=== PATIENT | female | born 1965 | race Caucasian/White ===

== ENCOUNTER 2016-07-26 20:52 | Emergency (ER) | payer OTHER ==
[2016-07-26 20:57] VITALS: BP 126/82; PULSE 86; TEMP 98.5; BMI 69.9
--- NOTE | 2016-07-26 21:18 | PDOC ---
History of Present Illness - General Chief Complaint: Injury Stated Complaint: RT FOOT INJURY Time Seen by Provider: 07/26/16 21:12 History Source: Patient Exam Limitations: No Limitations - History of Present Illness Initial Comments: 07/26/16 21:13 tripped and fell injuring to right foot 2 days ago. Inversion injury. USed ice and elevation with minimal resolve. 07/26/16 21:16 07/26/16 21:18 Occurred: reports: other (2 days ) Severity: reports: mild, moderate Pain Location: reports: lower extremity (right ankle / foot ) Method of Injury: Yes: fall Modifying Factors: improves with: cold therapy, immobilization Loss of Consciousness: no loss of consciousness Associated Symptoms (Fall): denies symptoms Past History - Travel Traveled outside of the country in the last 30 days: No Close contact w/someone who was outside of country & ill: No - Past Medical History Allergies/Adverse Reactions: Allergies Allergy/AdvReac Type Severity Reaction Status Date / Time No Known Allergies Allergy Verified 07/26/16 20:57 Home Medications: Ambulatory Orders NK [No Known Home Medication] 07/26/16 Anemia: No GI Disorders: Yes (H/O PANCREATITIS GB STONE FEB 2009,H-PYLORI) Suicide Attempt (Hx): No - Surgical History Cholecystectomy: Yes - Psycho/Social/Smoking Cessation Hx Anxiety: No Suicidal Ideation: No Smoking Status: No Smoking History: Never smoked Have you smoked in the past 12 months: No Number of Cigarettes Smoked Daily: 0 Hx Alcohol Use: No Drug/Substance Use Hx: No Substance Use Type: None Hx Substance Use Treatment: No Review of Systems - Review of Systems Able to Perform ROS?: Yes Is the patient limited Ugandan proficient: Yes Constitutional: Yes: See HPI. No: Symptoms Reported, Chills, Fever HEENTM: No: Symptoms Reported Musculoskeletal: Yes: Symptoms Reported, See HPI, Joint Pain, Joint Swelling Integumentary: Yes: Symptoms Reported, See HPI, Bruising Neurological: No: Symptoms reported All Other Systems: Reviewed and Negative *Physical Exam - Vital Signs Last Vital Signs Temp Pulse Resp BP Pulse Ox 98.5 F 86 18 126/82 99 07/26/16 20:54 07/26/16 20:54 07/26/16 20:54 07/26/16 20:54 07/26/16 20:54 - Physical Exam General Appearance: Yes: Nourished, Appropriately Dressed, Apparent Distress, Mild Distress HEENT: positive: ERUM, Normal ENT Inspection, Normal Voice, Symmetrical, TMs Normal, Pharynx Normal Neck: positive: Supple. negative: Tender, Lymphadenopathy (R), Lymphadenopathy (L) Respiratory/Chest: positive: Lungs Clear Gastrointestinal/Abdominal: positive: Soft. negative: Normal Bowel Sounds Musculoskeletal: positive: Normal Inspection. negative: CVA Tenderness Extremity: positive: Normal Capillary Refill, Normal Inspection, Tender, Swelling. 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 Medical Decision Making - Medical Decision Making 07/26/16 22:03 *DC/Admit/Observation/Transfer Diagnosis at time of Disposition: Right ankle sprain Qualifiers: Encounter type: initial encounter Involved ligament of ankle: unspecified ligament Qualified Code(s): S93.401A - Sprain of unspecified ligament of right ankle, initial encounter - Discharge Dispostion Disposition: HOME Condition at time of disposition: Stable Admit: No - Referrals Referrals: Gunner Izaguirre MD [Primary Care Provider] - Juan J Mims MD [Staff Physician] - - Patient Instructions Printed Discharge Instructions: DI for Ankle Sprain Additional Instructions: Rest, ice to area on and off for 15 minutes 4-6 times a day Avoid heavy lifting or exercise until pain and swelling is resolved or until further directed Keep area highly elevated to reduce swelling Use splints/Jorge Luis wrap as directed Followup with orthopedist in one to 2 days if not improving, if significantly improved may wait one week for followup with orthopedist May use ibuprofen 2-200 mg tablets every 6 hours as needed for pain - Post Discharge Activity Work/School Note: Back to Work
[2016-07-26] MEDS ORDERED: IBUPROFEN 600 MG TABLET (FP) PO ONE ×2 (22:11→22:13)
== END 2016-07-26 22:06 | disposition home or self-care (01) ==
LOC: JERFT 20:52
PROC: 2W3LX1Z Immobilization of Right Lower Extremity using Splint (ICD-10-PCS; principal; 2016-07-26)
DX: S93.401A Sprain of unspecified ligament of right ankle, initial encounter (principal); W01.0XXA Fall on same level from slipping, tripping and stumbling without subsequent striking against object, initial encounter; Y93.89 Activity, other specified; Y92.89 Other specified places as the place of occurrence of the external cause
CPT/HCPCS: 29515; 73610-TC-RT; 73630-TC-RT; 99281-25

== ENCOUNTER 2016-11-24 19:42 | Emergency (ER) | payer OTHER ==
[2016-11-24 19:49] VITALS: BP 145/92; PULSE 81; TEMP 99.3; BMI 32.4
[2016-11-24] MEDS ORDERED: diphenhydrAMINE HCL 25 MG CAPSULE (FP) PO ONE ×2 (20:59→21:03)
--- NOTE | 2016-11-24 21:07 | PDOC ---
History of Present Illness - General Chief Complaint: Eye Problem Stated Complaint: EYE PROBLEM/ARM PAIN Time Seen by Provider: 11/24/16 20:20 History Source: Patient - History of Present Illness Severity: moderate Past History - Past Medical History Allergies/Adverse Reactions: Allergies Allergy/AdvReac Type Severity Reaction Status Date / Time No Known Allergies Allergy Verified 07/26/16 20:57 Home Medications: Ambulatory Orders Loratadine [Claritin] 10 mg PO DAILY #7 tablet 11/24/16 Olopatadine HCl [Patanol] 1 drop OD BID #5 ml 11/24/16 Anemia: No GI Disorders: Yes (H/O PANCREATITIS GB STONE FEB 2009,H-PYLORI) - Surgical History Cholecystectomy: Yes - Suicide/Smoking/Psychosocial Hx Smoking Status: No Smoking History: Never smoked Have you smoked in the past 12 months: No Number of Cigarettes Smoked Daily: 0 Information on smoking cessation initiated: No Hx Alcohol Use: No Drug/Substance Use Hx: No Substance Use Type: None Hx Substance Use Treatment: No Review of Systems - Review of Systems HEENTM: No: Eye Pain, Blurred Vision, Tearing *Physical Exam - Vital Signs Last Vital Signs Temp Pulse Resp BP Pulse Ox 99.3 F 81 20 145/92 98 11/24/16 19:44 11/24/16 19:44 11/24/16 19:44 11/24/16 19:44 11/24/16 19:44 - Physical Exam General Appearance: Yes: Appropriately Dressed. No: Apparent Distress HEENT: positive: Normal Voice, Other (significant chemosis to lateral canthus of R eye, no erythema, tearing, discharge, fb or periorbital edema) Neck: positive: Supple Respiratory/Chest: negative: Respiratory Distress Integumentary: positive: Dry, Warm Neurologic: positive: Fully Oriented, Alert, Normal Mood/Affect Medical Decision Making - Medical Decision Making 11/24/16 21:04 51-year-old female, no significant history here with sudden onset right eye itching and discomfort that started while she was driving today. Patient thought it was her contact lens and has since removed and discarded lens. Denies eye pain, tearing, discharge, foreign body sensation, photophobia or visual changes. Patient well-appearing and stable with significant chemosis to lateral canthus of right eye without conjunctival erythema, discharge or tearing. No FB on lid eversion. No uptake on slit lamp. Symptoms most likely secondary to allergic reaction. Patient now states she has a dog at home who she is allergic and who she was playing with earlier today. For unclear reasons has kept dog. Dc with basic eyecare, antihistamine drop and oral antihistamine. Patient to refrain from contact lens use until symptoms completely resolve. Reasons to return discussed with patient *DC/Admit/Observation/Transfer Diagnosis at time of Disposition: Allergic conjunctivitis Qualifiers: Laterality: right Qualified Code(s): H10.11 - Acute atopic conjunctivitis, right eye; H10.11 - Acute atopic conjunctivitis, right eye - Discharge Dispostion Disposition: HOME Condition at time of disposition: Good - Prescriptions Prescriptions: Loratadine [Claritin] 10 mg PO DAILY #7 tablet Olopatadine HCl [Patanol] 1 drop OD BID #5 ml - Patient Instructions Printed Discharge Instructions: DI for Eye Allergic Reaction Additional Instructions: Take medications and use drop as prescribed until symptoms resolve. Apply cool compresses to right as needed for comfort Turn to ER if symptoms worsen
== END 2016-11-24 21:09 | disposition home or self-care (01) ==
LOC: JERFT 19:42
DX: H10.11 Acute atopic conjunctivitis, right eye (principal); Z87.19 Personal history of other diseases of the digestive system
CPT/HCPCS: 99281-25

== ENCOUNTER 2017-01-07 15:22 | Emergency (ER) | payer OTHER ==
--- NOTE | 2017-01-07 15:42 | PDOC ---
Rapid Medical Evaluation Time Seen by Provider: 01/07/17 15:30 Medical Evaluation: Allergies Allergy/AdvReac Type Severity Reaction Status Date / Time No Known Allergies Allergy Verified 07/26/16 20:57 01/07/17 15:31 Pt presents with complaint of : lt ankle injury since wednesday On brief exam: vss, edema to calcaneofibular ligament I have ordered the following: lt ankle xray Pt will go to the Emergency Dept for further workup Discharge Disposition - Diagnosis Ankle injury Qualifiers: Encounter type: initial encounter Laterality: left Qualified Code(s): S99.912A - Unspecified injury of left ankle, initial encounter - Referrals - Patient Instructions - Post Discharge Activity
[2017-01-07 15:44] VITALS: BP 142/72; PULSE 79; BMI 31.8
--- NOTE | 2017-01-07 17:08 | PDOC ---
History of Present Illness - General Chief Complaint: Injury Stated Complaint: INJURY Time Seen by Provider: 01/07/17 15:30 History Source: Patient Exam Limitations: No Limitations - History of Present Illness Initial Comments: 01/07/17 17:04 51 yr female tripped 5 days ago injured her left ankle. Pt has continued pain. pt is ambulatory Past History - Past Medical History Allergies/Adverse Reactions: Allergies Allergy/AdvReac Type Severity Reaction Status Date / Time No Known Allergies Allergy Verified 01/07/17 15:44 Home Medications: Ambulatory Orders Loratadine [Claritin] 10 mg PO DAILY #7 tablet 11/24/16 Olopatadine HCl [Patanol] 1 drop OD BID #5 ml 11/24/16 Anemia: No COPD: No GI Disorders: Yes (H/O PANCREATITIS GB STONE FEB 2009,H-PYLORI) - Surgical History Cholecystectomy: Yes - Suicide/Smoking/Psychosocial Hx Smoking Status: No Smoking History: Never smoked Have you smoked in the past 12 months: No Number of Cigarettes Smoked Daily: 0 Information on smoking cessation initiated: No Hx Alcohol Use: No Drug/Substance Use Hx: No Substance Use Type: None Hx Substance Use Treatment: No Review of Systems - Review of Systems Able to Perform ROS?: Yes Is the patient limited Croatian proficient: No Constitutional: No: Symptoms Reported HEENTM: No: Symptoms Reported Respiratory: No: Symptoms reported Cardiac (ROS): No: Symptoms Reported ABD/GI: No: Symptoms Reported : No: Symptoms Reported Musculoskeletal: Yes: See HPI *Physical Exam - Vital Signs Last Vital Signs Temp Pulse Resp BP Pulse Ox 79 18 142/72 100 01/07/17 15:39 01/07/17 15:39 01/07/17 15:39 01/07/17 15:39 - Physical Exam General Appearance: Yes: Nourished, Appropriately Dressed HEENT: positive: EOMI, ERUM Musculoskeletal: positive: Normal Inspection Extremity: positive: Normal Capillary Refill, Normal Range of Motion, Swelling. negative: Delayed Capillary Refill, Pedal Edema Integumentary: positive: Normal Color, Dry, Warm Neurologic: positive: blocker and cutter contact lens II-XII NML intact, Fully Oriented, Alert, Normal Mood/ Affect, Normal Response, Motor Strength 5/5 Procedures - Splinting Splint Location: Left: Ankle (mcgill dressing ) Medical Decision Making - Medical Decision Making 01/07/17 17:05 cc: left ankle injury 5 days ago will xray to r/o fracture (ordered in [facility]) mcgill dressing and hard sole shoe ortho referral weight bear as tolerated 01/07/17 17:08 negative fracture *DC/Admit/Observation/Transfer Diagnosis at time of Disposition: Ankle injury Qualifiers: Encounter type: initial encounter Laterality: left Qualified Code(s): S99.912A - Unspecified injury of left ankle, initial encounter - Discharge Dispostion Disposition: HOME Condition at time of disposition: Good - Referrals Referrals: Gunner Izaguirre MD [Primary Care Provider] - Juan J Mims MD [Staff Physician] - - Patient Instructions Additional Instructions: elevate and apply warm compresses every 2hrs for 20 minutes take motrin as needed for pain use the shaheed wrap dressing at all times except to bathe follow with the orthopedist next week call tomorrow to make appointment - Post Discharge Activity
== END 2017-01-07 17:11 | disposition home or self-care (01) ==
LOC: JERFT 15:22
PROC: 2W3RX1Z Immobilization of Left Lower Leg using Splint (ICD-10-PCS; principal; 2017-01-07)
DX: S99.812A Other specified injuries of left ankle, initial encounter (principal); W01.0XXA Fall on same level from slipping, tripping and stumbling without subsequent striking against object, initial encounter; Y93.89 Activity, other specified; Y92.89 Other specified places as the place of occurrence of the external cause; Y99.8 Other external cause status
CPT/HCPCS: 73610-TC-LT; 99281-25

== ENCOUNTER 2017-11-11 22:59 | Emergency (ER) | payer OTHER ==
[2017-11-11 23:02] VITALS: BP 139/80; PULSE 82; TEMP 98.3; BMI 32.5
--- NOTE | 2017-11-11 23:29 | PDOC ---
History of Present Illness - General Chief Complaint: Pain, Acute Stated Complaint: KNEE PAIN Time Seen by Provider: 11/11/17 23:12 History Source: Patient Exam Limitations: No Limitations - History of Present Illness Initial Comments: 11/11/17 23:24 HISTORY OF PRESENT ILLNESS: This is a 52-year-old woman with past medical history of pancreatitis, cholecystectomy presents emergency Department with atraumatic left knee pain for the past 3 days. Patient states she had a similar injury a couple of months ago and has been resting her knee taking over-the- counter pain medication which has helped. Patient was evaluated by her primary doctor 2 days ago and she was placed on Naprosyn which is helping control her pain. No recent travel or sick contacts. PAST MEDICAL HISTORY: see hpi SURGICAL HISTORY: see hpi ALLERGIES: No known drug allergies REVIEW OF SYSTEMS General/Constitutional: Denies fever or chills. Denies weakness, weight change. HEENT: Denies change in vision. Denies ear pain or discharge. Denies sore throat. Cardiovascular: Denies chest pain or shortness of breath. Respiratory: Denies cough, wheezing, or hemoptysis. Gastrointestinal: Denies nausea, vomiting, diarrhea or constipation. Denies rectal bleeding. Genitourinary: Denies dysuria, frequency, or change in urination. Musculoskeletal: Left knee pain. Denies neck or back pain. Skin and breasts: Denies rash or easy bruising. Neurologic: Denies headache, vertigo, loss of consciousness, or loss of sensation. Psychiatric: Denies depression or anxiety. Endocrine: Denies increased thirst. Denies abnormal weight change. Hematologic/Lymphatic: Denies anemia, easy bleeding, or history of blood clots. Allergic/Immunologic: Denies hives or skin allergy. Denies latex allergy. PHYSICAL EXAM General Appearance: Well-appearing, appropriately dressed. No apparent distress , no intoxication. HEENT: EOMI, PERRLA, normal ENT inspection, normal voice, TMs normal, pharynx normal. No conjunctival pallor. No photophobia, scleral icterus. Neck: Supple. Trachea midline. No tenderness, rigidity, carotid bruit, stridor , lymphadenopathy, or thyromegaly. Respiratory/Chest: Lungs CTAB. No shortness of breath, chest tenderness, respiratory distress, accessory muscle use. No crackles, rales, rhonchi, stridor , wheezing, dullness Cardiovascular: RRR. S1, S2. No JVD, murmur, bradycardia, tachycardia. Vascular Pulses: Dorsalis-Pedis (R): 2+, Dorsalis-Pedis (L): 2+ Gastrointestinal/Abdominal: Normal bowel sounds. Abdomen soft, non-distended. No tenderness or rebound tenderness. No organomegaly, pulsatile mass, guarding, hernia, hepatomegaly, splenomegaly. Lymphatic: No adenopathy, tenderness. Musculoskeletal/Extremities: Normal inspection. FROM of all extremities, normal capillary refill. Pelvis Stable. No CVA tenderness. No tenderness to extremities, pedal edema, swelling, erythema or deformity. -Cleveland's test. Ambulatory with limp. Integumentary: Appropriate color, dry, warm. 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 Fully oriented, alert. Appropriate mood/affect. Motor strength 5/5. No appreciable EOM palsy, facial droop or sensory deficit. Past History - Past Medical History Allergies/Adverse Reactions: Allergies Allergy/AdvReac Type Severity Reaction Status Date / Time No Known Allergies Allergy Verified 11/11/17 23:02 Home Medications: Ambulatory Orders Loratadine [Claritin] 10 mg PO DAILY #7 tablet 11/24/16 Olopatadine HCl [Patanol] 1 drop OD BID #5 ml 11/24/16 Anemia: No COPD: No GI Disorders: Yes (H/O PANCREATITIS GB STONE FEB 2009,H-PYLORI) - Surgical History Abdominal Surgery: Yes Cholecystectomy: Yes - Suicide/Smoking/Psychosocial Hx Smoking Status: No Smoking History: Never smoked Have you smoked in the past 12 months: No Number of Cigarettes Smoked Daily: 0 Hx Alcohol Use: No Drug/Substance Use Hx: No Substance Use Type: None Hx Substance Use Treatment: No *Physical Exam - Vital Signs Last Vital Signs Temp Pulse Resp BP Pulse Ox 98.3 F 82 18 139/80 98 11/11/17 23:00 11/11/17 23:00 11/11/17 23:00 11/11/17 23:00 11/11/17 23:00 Medical Decision Making - Medical Decision Making 11/11/17 23:26 A/P: 52-year-old woman with atraumatic left knee pain for 3 days No swelling or erythema present to left knee Negative Khan test 2+ DP pulses bilaterally Full range of motion of left knee against resistance Patient was able to ambulate with a limp X-rays likely d/c 11/11/17 23:40 X-rays as read by me: No acute fractures or dislocations noted. I'll discharge the patient with a knee immobilizer crutches with orthopedic follow-up. *DC/Admit/Observation/Transfer Diagnosis at time of Disposition: Left medial knee pain - Discharge Dispostion Disposition: HOME Condition at time of disposition: Stable Decision to Admit order: No - Referrals Referrals: Gunner Izaguirre MD [Primary Care Provider] - Juan J Mims MD [Staff Physician] - - Patient Instructions Additional Instructions: Take Tylenol as needed for pain. Follow manufacturers instructions for appropriate dosage. Try not to walk or bear weight on your left knee as much as possible for the next 3 days. Apply ice for 20 minutes and removed for at least 20 minutes before reapplying the ice. Keep immobilizer on your knee as much as possible. Whenever possible keep your leg elevated to decrease swelling to your ankle. You've been given the number for an orthopedist. If symptoms do not resolve within the next 7 days call the orthopedist for further evaluation. Return to emergency department for discoloration of the foot, numbness or tingling to the foot, worsening pain, or any other concerns. Thank you very much for choosing us to provide your emergent healthcare needs. - Post Discharge Activity
== END 2017-11-12 00:20 | disposition home or self-care (01) ==
LOC: JER 22:59
DX: M25.562 Pain in left knee (principal); Z87.19 Personal history of other diseases of the digestive system
CPT/HCPCS: 73562-TC-LT-FY; 99282-25

== ENCOUNTER 2018-12-28 05:41 | Emergency (ER) | payer OTHER ==
[2018-12-28 06:09] VITALS: BP 129/82; PULSE 77; TEMP 98.3; BMI 35.1
--- NOTE | 2018-12-28 06:25 | PDOC ---
History of Present Illness - General Chief Complaint: Sore Throat Stated Complaint: COUGH/SORE THROAT Time Seen by Provider: 12/28/18 06:21 History Source: Patient - History of Present Illness Initial Comments: 12/28/18 06:22 53-year-old female reports that she has been having sore throat, nasal congestion, nausea, diarrhea for the past 1 day. Patient reports that she has been in and out of the [place] [facility] taking care of sick grandmother. Patient reports that grandmother is diagnosed with pneumonia. denies chest pain, Abdominal pain, urinary symptoms. Patient has no past medical history 12/28/18 06:23 Past History - Past Medical History Allergies/Adverse Reactions: Allergies Allergy/AdvReac Type Severity Reaction Status Date / Time No Known Allergies Allergy Verified 12/28/18 06:09 Home Medications: Ambulatory Orders Loratadine [Claritin] 10 mg PO DAILY #7 tablet 11/24/16 Olopatadine HCl [Patanol] 1 drop OD BID #5 ml 11/24/16 Azithromycin [Zithromax 250mg Tablets -] 250 mg PO UTDICT #6 tab 12/28/18 Anemia: No COPD: No GI Disorders: Yes (H/O PANCREATITIS GB STONE FEB 2009,H-PYLORI) - Surgical History Abdominal Surgery: Yes Cholecystectomy: Yes - Psycho Social/Smoking Cessation Hx Smoking Status: No Smoking History: Never smoked Have you smoked in the past 12 months: No Number of Cigarettes Smoked Daily: 0 Information on smoking cessation initiated: No Hx Alcohol Use: No Drug/Substance Use Hx: No Substance Use Type: None Hx Substance Use Treatment: No Review of Systems - Review of Systems Able to Perform ROS?: Yes Is the patient limited Bengali proficient: No Constitutional: Yes: Chills HEENTM: Yes: Nose Congestion, Throat Pain ABD/GI: Yes: Diarrhea, Nausea *Physical Exam - Vital Signs Last Vital Signs Temp Pulse Resp BP Pulse Ox 98.3 F 77 17 129/82 98 12/28/18 05:45 12/28/18 05:45 12/28/18 05:45 12/28/18 05:45 12/28/18 05:45 - Physical Exam General Appearance: Yes: Appropriately Dressed HEENT: positive: Normal ENT Inspection Respiratory/Chest: positive: Lungs Clear, Normal Breath Sounds Cardiovascular: positive: Regular Rhythm, Regular Rate Gastrointestinal/Abdominal: positive: Normal Bowel Sounds, Soft. negative: Tender Extremity: positive: Normal Capillary Refill, Normal Inspection, Normal Range of Motion Integumentary: positive: Normal Color, Dry, Warm Neurologic: positive: Fully Oriented, Alert, Normal Mood/Affect Medical Decision Making - Medical Decision Making 12/28/18 06:58 A: URI P: supportive care azithromycin Discharge - Discharge Information Problems reviewed: Yes Clinical Impression/Diagnosis: URI (upper respiratory infection) Qualifiers: URI type: unspecified URI Qualified Code(s): J06.9 - Acute upper respiratory infection, unspecified Condition: Fair Disposition: HOME - Additional Discharge Information Prescriptions: Azithromycin [Zithromax 250mg Tablets -] 250 mg PO UTDICT #6 tab - Follow up/Referral Referrals: Gunner Izaguirre MD [Primary Care Provider] - - Patient Discharge Instructions Patient Printed Discharge Instructions: Common Cold Additional Instructions: Drink plenty of fluids Gargle with warm salty water Drink warm liquids Take azithromycin as prescribed. Take ibuprofen every 6 hours as needed for pain or fever Follow with your doctor as soon as possible - Post Discharge Activity Work/Back to School Note: Back to Work
== END 2018-12-28 06:35 | disposition home or self-care (01) ==
LOC: JER 05:41
DX: J06.9 Acute upper respiratory infection, unspecified (principal)
CPT/HCPCS: 99282-25

== ENCOUNTER 2020-10-19 17:45 | Emergency (ER) | payer OTHER ==
[2020-10-19 18:12] VITALS: BP 128/82; PULSE 83; TEMP 98.6; BMI 30.1
== END 2020-10-19 19:01 | disposition home or self-care (01) ==
LOC: JERFT 17:45
DX: S60.111A Contusion of right thumb with damage to nail, initial encounter (principal); W23.1XXA Caught, crushed, jammed, or pinched between stationary objects, initial encounter
CPT/HCPCS: 73140-TC-RT-FY; 99283-25

== ENCOUNTER 2022-01-28 04:12 | Day surgery (SDC) | payer OTHER ==
[2022-01-23 16:33] VITALS: BMI 30.9
[~2022-01-28 04:12] MED LIST: ACETAMINOPHEN 325 MG TABLET (FP) PO PRN; BSS (NA/CA/MG/K) BALANCED SALT SOLUTION OPHTH SOLN 15 ML BOTTLE OS ONE; CHONDROITIN SU A/HYALUR SOD 1 KIT IO ONE; EPINEPHrine/PF 1 MG/1 ML (1:1,000) AMPULE SQ ONE; LIDOCAINE 1% P/F 10 MG/ML VIAL PNB ONE; POVIDONE-IODINE 5% OPHTHALMIC PREP 30 ML SOLUTION OS ONE; TETRACAINE 0.5% OPHTH SOLN 2 ML BOTTLE OS ONE; TRYPAN BLUE 0.5 ML DISP.SYRIN IO ONE
[2022-01-28] MEDS ORDERED: TROPICAMIDE 1% OPHTH SOLN 15 ML BOTTLE ONE (08:36)
[2022-01-28] MEDS ORDERED: KETOROLAC TROMETHAMINE 0.5% EYE DROP 1 DROP DROPS ONE (08:36)
[2022-01-28] MEDS ORDERED: CYCLOPENTOLATE HCL 1% OPHTH SOLN 2 ML BOTTLE ONE (08:36)
[2022-01-28] MEDS ORDERED: PHENYLEPHRINE 2.5% OPTHALMIC DROP 2ML BOTTLE ONE (08:36)
[2022-01-28] MEDS ORDERED: OFLOXACIN 0.3% OPHTHALMIC SOLUTION 5 ML BOTTLE ONE (08:36)
[2022-01-28] MEDS: OFLOXACIN 0.3% OPHTHALMIC SOLUTION 5 ML BOTTLE OP SCH ×3 (08:45→09:00)
[2022-01-28] MEDS: KETOROLAC TROMETHAMINE 0.5% EYE DROP 1 DROP DROPS OP SCH ×3 (08:45→09:00)
[2022-01-28] MEDS: PHENYLEPHRINE 2.5% OPHTH SOLN 15 ML BOTTLE OP SCH ×3 (08:45→09:00)
[2022-01-28] MEDS: CYCLOPENTOLATE HCL 1% OPHTH SOLN 2 ML BOTTLE OP SCH ×3 (08:45→09:00)
[2022-01-28] MEDS: TROPICAMIDE 1% OPHTH SOLN 15 ML BOTTLE OP SCH ×3 (08:45→09:00)
[2022-01-28] MEDS ORDERED: MIDAZOLAM HCL 2 MG/2 ML SINGLE DOSE VIAL ONE (10:21)
[2022-01-28] MEDS ORDERED: TETRACAINE 0.5% OPHTH SOLN 2 ML BOTTLE OS ONE (10:33)
[2022-01-28] MEDS ORDERED: POVIDONE-IODINE 5% OPHTHALMIC PREP 30 ML SOLUTION OS ONE (10:35)
[2022-01-28] MEDS ORDERED: BSS (NA/CA/MG/K) BALANCED SALT SOLUTION OPHTH SOLN 15 ML BOTTLE OS ONE (10:38)
[2022-01-28] MEDS ORDERED: LIDOCAINE 1% P/F 10 MG/ML VIAL PNB ONE (10:39)
[2022-01-28] MEDS ORDERED: CHONDROITIN SU A/HYALUR SOD 1 KIT IO ONE (10:40)
[2022-01-28] MEDS ORDERED: EPINEPHrine/PF 1 MG/1 ML (1:1,000) AMPULE SQ ONE ×2 (10:49)
[2022-01-28] MEDS ORDERED: ACETAMINOPHEN 325 MG TABLET (FP) ONE (11:49)
[2022-01-28 12:41] VITALS: BP 140/80; PULSE 76; RESP 18; TEMP 97
== END 2022-01-28 13:22 | disposition home or self-care (01) ==
LOC: JASU-SURG 04:12
PROVIDERS: ATTEND Ophthalmology
PROC: 08RK3JZ Replacement of Left Lens with Synthetic Substitute, Percutaneous Approach (ICD-10-PCS; principal; 2022-01-28 10:00)
DX: H26.9 Unspecified cataract (principal)
CPT/HCPCS: 66984; V2632

== ENCOUNTER 2022-02-15 13:18 | Emergency (ER) | payer OTHER ==
[2022-02-15 13:22] VITALS: BP 126/76; PULSE 83; RESP 18; TEMP 97.3; BMI 30.1
[2022-02-15] MEDS ORDERED: BACITRACIN ZINC 15 GM TUBE TOPICAL OINTMENT TP ONE (14:12)
[2022-02-15] MEDS ORDERED: DIPHTH,PERTUSS(ACELL),TET 0.5 ML DISP.SYRIN IM ONE ×2 (14:12→14:20)
[2022-02-15] MEDS ORDERED: BACITRACIN ZINC 15 GM TUBE TOPICAL OINTMENT ONE (14:19)
== END 2022-02-15 17:12 | disposition home or self-care (01) ==
LOC: JER 13:18 → JERFT 13:18
PROC: 3E0234Z Introduction of Serum, Toxoid and Vaccine into Muscle, Percutaneous Approach (ICD-10-PCS; principal; 2022-02-15)
DX: S40.012A Contusion of left shoulder, initial encounter (principal); S90.32XA Contusion of left foot, initial encounter; S70.02XA Contusion of left hip, initial encounter; S70.12XA Contusion of left thigh, initial encounter; W10.9XXA Fall (on) (from) unspecified stairs and steps, initial encounter
CPT/HCPCS: 70450-TC; 72125-TC; 73030-TC-LT-FY; 73502-TC-LT-FY; 73552-TC-LT-FY; 73610-TC-LT-FY; 73630-TC-LT; 90471; 90715; 99285-25

== ENCOUNTER 2022-04-04 09:13 | Emergency (ER) | payer OTHER ==
[2022-04-04 09:25] VITALS: BP 142/91; PULSE 75; RESP 18; TEMP 98.1; BMI 30.8
[2022-04-04] MEDS ORDERED: IBUPROFEN 600 MG TABLET (FP) PO ONE ×2 (09:39→09:49)
== END 2022-04-04 12:45 | disposition home or self-care (01) ==
LOC: JERFT 09:13 → JER 09:13 → JERFT 12:45
DX: S20.212A Contusion of left front wall of thorax, initial encounter (principal); S09.90XA Unspecified injury of head, initial encounter; S00.83XA Contusion of other part of head, initial encounter; W07.XXXA Fall from chair, initial encounter; Y92.002 Bathroom of unspecified non-institutional (private) residence as the place of occurrence of the external cause
CPT/HCPCS: 70450-TC; 71101-TC-LT-FY; 72125-TC; 99284-25

== ENCOUNTER 2024-06-04 19:59 | Emergency (ER) | payer OTHER ==
[2024-06-04 20:09] VITALS: BP 150/90; PULSE 88; RESP 18; TEMP 98.8; BMI 31.6
== END 2024-06-04 22:37 | disposition home or self-care (01) ==
LOC: JER 19:59
DX: R42 Dizziness and giddiness (principal); W22.8XXA Striking against or struck by other objects, initial encounter
CPT/HCPCS: 70450-TC; 99284-25